=== PATIENT | male | born 2000 | race Caucasian/White ===

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

== ENCOUNTER → 2021-08-06 | Outpatient (CLI) | payer BC | END | disposition home or self-care (01) | LOC: LAB 18:13 | PROVIDERS: ATTEND Internal Medicine | DX: Z20.2 Contact with and (suspected) exposure to infections with a predominantly sexual mode of transmission (principal) ==